=== PATIENT | male | born 1965 | race Caucasian/White ===

== ENCOUNTER 2021-11-23 09:40 | Emergency (ER) | payer BC ==
[~2021-11-23] VITALS: Ht 182.9 cm; Wt 102.1 kg
[2021-11-23] MEDS ORDERED: HYDROcodone-ACET 5/325MG TAB PO ONE (11:45)
[2021-11-23 12:00] VITALS: BP 145/96
== END 2021-11-23 12:02 | disposition left against medical advice (07) ==
LOC: ER 09:40
DX: S61.511A Laceration without foreign body of right wrist, initial encounter (principal); Z53.29 Procedure and treatment not carried out because of patient's decision for other reasons; W25.XXXA Contact with sharp glass, initial encounter; Y93.89 Activity, other specified; Y92.89 Other specified places as the place of occurrence of the external cause; Y99.8 Other external cause status